=== PATIENT | male | born 1965 | race Caucasian/White ===

== ENCOUNTER 2016-07-19 08:59 | Emergency (ER) | payer OTHER ==
[2016-07-19] MEDS ORDERED: NS 1,000 ML IV ONE (09:10)
--- NOTE | 2016-07-19 09:10 | CPEKG ---
Heart Rate: 88 RR Interval: 682 P-R Interval: 172 QRSD Interval: 98 QT Interval: 388 QTC Interval: 470 P [place]: 68 QRS [place]: 30 T Wave [place]: 35 EKG Severity - NORMAL ECG - EKG Impression: SINUS RHYTHM Electronically Signed By: Dexter Burkett 19-Jul-2016 15:18:59
[2016-07-19] MEDS ORDERED: ASPIRIN 81 MG CHEWABLE TAB PO ONE (09:14)
[2016-07-19 09:19] LABS: % IMMATURE GRANULYOCYTES 0.3 % (0.0-1.1); ABSOLUTE IMMATURE GRANULOCYTES 0.02 10^3/uL (0.00-0.10); ADD DIFF? NO; ADD MORPH? NO; ADD SCAN? NO; ATYPICAL LYMPHOCYTE FLAG 10 (0-99); FRAGMENT RBC FLAG 0 (0-99); HEMATOCRIT 51.8 % (40.0-51.0); HEMOGLOBIN 18.4 g/dL (13.7-17.5); LEFT SHIFT FLG 0 (0-99); LIPEMIA HEMOLYSIS FLAG 90 (0-99); MEAN CELL HEMOGLOBIN CONCENTR. 35.5 g/dL (32.4-36.7); MEAN CELL VOLUME 87.4 fL (81.5-99.8); MEAN PLATELET VOLUME 9.7 fL (8.7-11.7); PLATELET CLUMPS FLAG 0 (0-99); PLATELET COUNT 321 10^3/uL (150-400); RED BLOOD CELL COUNT 5.93 10^6/uL (4.40-6.38); RED CELL DISTRIBUTION WIDTH 13.2 % (11.5-15.2)
--- NOTE | 2016-07-19 09:39 | EDPHY ---
H & P Stated Complaint: 2 days heart palpitations and "indigestion" transient sob HPI/ROS: Chief complaint: Fluttering sensation in his chest History of present illness: This is a 51-year-old male who presents to the emergency department for evaluation of what he describes as a fluttering sensation in his chest. Patient reports the onset of symptoms over the last few days. He states he initially developed some epigastric discomfort and was belching. He has had intermittent shortness of breath the with the indigestion and belching. He states he has suffered from this type of problem previously on multiple occasions. However he also developed a fluttering sensation in his chest over the last 2 days which is new for him, he has never felt this before. He denies precipitating factors. He denies alleviating factors. He denies other associated signs or symptoms including no fevers or cold symptoms, no chest pain, no pain or swelling in the legs, no systemic symptoms such as fatigue or lightheadedness or dizziness. 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 - Social History Smoking Status: Never smoked Constitutional: Initial Vital Signs Temperature (C) 36.3 C 07/19/16 09:00 Heart Rate 104 H 07/19/16 09:00 Respiratory Rate 22 H 07/19/16 09:00 Blood Pressure 168/106 H 07/19/16 09:00 O2 Sat (%) 95 07/19/16 09:00 O2 Delivery Mode Room Air O2 (L/minute) 2 Allergies/Adverse Reactions: No Known Allergies Allergy (Verified 07/19/16 08:59) Home Medications: Medication Instructions Recorded Lisinopril 07/19/16 Medical Decision Making - Diagnostics Imaging: Chest x-ray negative ED Course/Re-evaluation: Patient is discussed with my secondary supervising physician Dr. Dexter Burkett. Patient presents to the emergency department with some epigastric discomfort and shortness of breath which he has had intermittently for some time and now with some palpitations. On presentation he is nontoxic. He is afebrile and vital signs are stable. Physical exam is unremarkable. Laboratory studies do appear that he is dehydrated likely resulting in increased H&H and decreased bicarb otherwise they are unremarkable, EKG and chest x-ray unremarkable. My suspicion for serious underlying pathology requiring inpatient management is low. I believe he can appropriately follow up on an outpatient basis for continued evaluation and care. He is asked to follow up with his primary care doctor and cardiology for recheck. Return precautions are given. Patient voiced understanding and agreement with plan. Differential Diagnosis: Included but not limited to cardiac dysrhythmia, ACS, PE, electrolyte disturbances, anemia, GERD - Data Points Laboratory Results: Laboratory Results 07/19/16 09:10 07/19/16 09:10 07/19/16 07/19/16 07/19/16 09:10 09:10 09:10 WBC 6.48 10^3/uL 10^3/uL (3.80-9.50) RBC 5.93 10^6/uL 10^6/uL (4.40-6.38) Hgb 18.4 g/dL H g/dL (13.7-17.5) Hct 51.8 % H % (40.0-51.0) MCV 87.4 fL fL (81.5-99.8) MCH 31.0 pg pg (27.9-34.1) MCHC 35.5 g/dL g/dL (32.4-36.7) RDW 13.2 % % (11.5-15.2) Plt Count 321 10^3/uL 10^3/uL (150-400) MPV 9.7 fL fL (8.7-11.7) Neut % (Auto) 48.9 % % (39.3-74.2) Lymph % (Auto) 32.6 % % (15.0-45.0) Larue % (Auto) 12.8 % % (4.5-13.0) Eos % (Auto) 4.2 % % (0.6-7.6) Baso % (Auto) 1.2 % % (0.3-1.7) Nucleat RBC Rel Count 0.0 % % (0.0-0.2) Absolute Neuts (auto) 3.17 10^3/uL 10^3/uL (1.70-6.50) Absolute Lymphs (auto) 2.11 10^3/uL 10^3/uL (1.00-3.00) Absolute Monos (auto) 0.83 10^3/uL H 10^3/uL (0.30-0.80) Absolute Eos (auto) 0.27 10^3/uL 10^3/uL (0.03-0.40) Absolute Basos (auto) 0.08 10^3/uL 10^3/uL (0.02-0.10) Absolute Nucleated RBC 0.00 10^3/uL 10^3/uL (0-0.01) Immature Gran % 0.3 % % (0.0-1.1) Immature Gran # 0.02 10^3/uL 10^3/uL (0.00-0.10) D-Dimer < 0.27 ug/mLFEU ug/mLFEU (0.00-0.50) Sodium 141 mEq/L mEq/L (134-144) Potassium 3.6 mEq/L mEq/L (3.5-5.2) Chloride 105 mEq/L mEq/L (97-110) Carbon Dioxide 19 mEq/l L mEq/l (22-31) Anion Gap 17 mEq/L H mEq/L (8-16) BUN 13 mg/dL mg/dL (7-23) Creatinine 1.1 mg/dL mg/dL (0.7-1.3) Estimated GFR > 60 Glucose 107 mg/dL H mg/dL (70-100) Calcium 9.8 mg/dL mg/dL (8.5-10.4) Magnesium 2.1 mg/dL mg/dL (1.6-2.3) Total Bilirubin 1.6 mg/dL H mg/dL (0.1-1.4) Conjugated Bilirubin 0.4 mg/dL mg/dL (0.0-0.5) Unconjugated Bilirubin 1.2 mg/dL H mg/dL (0.0-1.1) AST 39 IU/L IU/L (17-59) ALT 63 IU/L IU/L (21-72) Alkaline Phosphatase 88 IU/L IU/L (38-126) Troponin I < 0.012 ng/mL ng/mL (0-0.034) Total Protein 8.3 g/dL H g/dL (6.3-8.2) Albumin 4.9 g/dL g/dL (3.5-5.0) Lipase 111.0 IU/L IU/L (23-300) TSH 2.120 uIU/mL uIU/mL (0.465-4.680) Medications Given: Discontinued Medications Aspirin (Aspirin) 243 mg PO EDNOW ONE Stop: 07/19/16 09:15 Last Admin: 07/19/16 09:24 Dose: 243 mg Sodium Chloride (Ns) 1,000 mls @ 0 mls/hr IV ONCE ONE PRN Reason: Wide Open Stop: 07/19/16 09:11 Last Admin: 07/19/16 09:22 Dose: 1,000 mls Departure - Departure Disposition: Home, Routine, Self-Care Clinical Impression: Palpitations Condition: Good Instructions: Palpitations (ED) Additional Instructions: Follow-up with your primary care doctor and Cardiology for continued evaluation and care If symptoms worsen or new symptoms develop return to the emergency department for recheck Referrals: Patient,NotPresent [Unknown] - As per Instructions Verna Fleming MD [Medical Doctor] - As per Instructions Sapna Robb MD [Medical Doctor] - As per Instructions
[2016-07-19 09:40] VITALS: O2SAT 98
[2016-07-19 09:43] LABS: ALANINE AMINOTRANSFERASE 63 IU/L (21-72); ALBUMIN 4.9 g/dL (3.5-5.0); ALKALINE PHOSPHATASE 88 IU/L (38-126); ANION GAP 17 mEq/L (8-16); ASPARTATE AMINOTRANSFERASE 39 IU/L (17-59); BILIRUBIN,TOTAL 1.6 mg/dL (0.1-1.4); BILIRUBIN-CONJUGATED 0.4 mg/dL (0.0-0.5); BILIRUBIN-UNCONJUGATED 1.2 mg/dL (0.0-1.1); CALCIUM 9.8 mg/dL (8.5-10.4); CARBON DIOXIDE 19 mEq/l (22-31); CHLORIDE 105 mEq/L (97-110); CREATININE 1.1 mg/dL (0.7-1.3); GLOMERULAR FILTRATION RATE > 60; GLUCOSE 107 mg/dL (70-100); MAGNESIUM 2.1 mg/dL (1.6-2.3); POTASSIUM 3.6 mEq/L (3.5-5.2); SODIUM 141 mEq/L (134-144); TOTAL PROTEIN 8.3 g/dL (6.3-8.2)
[2016-07-19 09:54] LABS: TROPONIN I < 0.012 ng/mL (0-0.034)
[2016-07-19 11:13] VITALS: RESP 16; TEMP 98.4
[2016-07-19 11:14] VITALS: BP 127/75; PULSE 62
== END 2016-07-19 11:13 | disposition home or self-care (01) ==
DX: R00.2 Palpitations (principal)

== ENCOUNTER → 2016-10-13 | Outpatient (CLI) | payer OTHER | LOC: FIMAGING 10:13 | PROVIDERS: ATTEND Family Medicine | DX: R31.9 Hematuria, unspecified (principal) ==